=== PATIENT | female | born 1955 | race Caucasian/White ===

== ENCOUNTER 2019-10-29 11:46 | Outpatient (CLI) | payer OTHER, SELFPAY ==
--- NOTE | ~2019-10-29 | MM_ITS ---
EXAMINATION: MM screening [facility] w marcio HISTORY: Screening mammogram TECHNIQUE: Craniocaudal and mediolateral oblique 3-D tomosynthesis images were obtained and synthetic 2-D images were generated. CAD analysis was submitted and interpreted. COMPARISON: 08/27/2018, 08/01/2017, 03/15/2016 bilateral digital screening mammogram examinations BREAST PARENCHYMAL COMPOSITION: There are scattered areas of fibroglandular density. FINDINGS: There is stable mild fibroglandular asymmetry, unchanged since 03/15/2016. Occasional benig n calcifications. There is no evidence of suspicious mass, calcification, or architectural distortion to suggest malignancy in either breast. There has been no suspicious interval change. IMPRESSION: 1. No mammographic evidence of malignancy. 2. Recommend routine screening mammography in one year. BI-RADS Category 2: Benign finding(s). Reviewed, dictated and finalized at location A.
== END 2019-10-29 11:47 | disposition home or self-care (01) ==
LOC: ANHIMG 11:47
PROVIDERS: PCP Internal Medicine; Visit Provider Obstetrics & Gynecology
DX: Z12.31 Encounter for screening mammogram for malignant neoplasm of breast (principal)
CPT/HCPCS: 77063; 77067

== ENCOUNTER 2020-05-26 08:21 | Outpatient (CLI) | payer MEDICARE, SELFPAY ==
--- NOTE | ~2020-05-26 | CT_ITS ---
EXAMINATION: CT diagnostic chest wo con EXAM DATE: 05/26/2020 08:46 INDICATION: Cough. Previous positive test for COVID 19. TECHNIQUE: Spiral CT of the chest without contrast. Axial, coronal and sagittal images were reviewe d. Coronal maximum intensity pixel images of chest reviewed. The dose-length product (DLP) for this examination was 153.45 mGy-cm. The exposure was tailored according to patient size (auto mA exposur e control), and iterative reconstruction (ASIR) was used as additional dose reduction technique. The re is no prior study for comparison. FINDINGS: The lungs are clear. There are no pleural or pericardial effusions. Tracheobronchial t ree is patent. There is no mediastinal, hilar or axillary lymphadenopathy. There is no pneumothor ax. There is mild cardiomegaly. No evidence of coronary arterial calcification. Upper abdomen is unremarkable. The bones are unremarkable. IMPRESSION: Mild cardiomegaly. Otherwise unremarkable CT chest exam. Reviewed, dictated and finalized at location A. 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
== END 2020-05-26 08:22 | disposition home or self-care (01) ==
PROVIDERS: PCP Internal Medicine; Visit Provider Internal Medicine
DX: R05 Cough (principal); I51.7 Cardiomegaly
CPT/HCPCS: 71250

== ENCOUNTER 2020-11-24 09:29 | Outpatient (CLI) | payer MEDICARE, SELFPAY ==
--- NOTE | ~2020-11-24 | MM_ITS ---
EXAMINATION: MM screening [facility] w marcio HISTORY: Screening mammogram TECHNIQUE: Craniocaudal and mediolateral oblique 3-D tomosynthesis images were obtained and synthetic 2-D images were generated. CAD analysis was submitted and interpreted. COMPARISON: 10/29/2019, 08/23/2018, 08/01/2017 bilateral digital screening mammogram examinations BREAST PARENCHYMAL COMPOSITION: There are scattered areas of fibroglandular density. FINDINGS: Stable mild fibroglandular asymmetry. Occasional benign calcifications. There is no evidenc e of suspicious mass, calcification, or architectural distortion to suggest malignancy in either [address]. There has been no suspicious interval change. IMPRESSION: 1. No mammographic evidence of malignancy. 2. Recommend routine screening mammography in one year. BI-RADS Category 2: Benign finding(s). Reviewed, dictated and finalized at location A.
== END 2020-11-24 09:30 | disposition home or self-care (01) ==
LOC: ANHIMG 09:30
PROVIDERS: PCP Internal Medicine; Visit Provider Obstetrics & Gynecology
DX: Z12.31 Encounter for screening mammogram for malignant neoplasm of breast (principal)
CPT/HCPCS: 77063; 77067

== ENCOUNTER → 2021-01-02 08:00 | Outpatient (CLI) | payer MEDICARE, SELFPAY ==
[2021-01-03 07:19] LABS: SARS-CoV-2 RNA PCR Negative
== END ==
PROVIDERS: PCP Internal Medicine; Visit Provider Internal Medicine
DX: R68.89 Other general symptoms and signs (principal); Z20.822 Contact with and (suspected) exposure to COVID-19
CPT/HCPCS: C9803; U0003; U0005

== ENCOUNTER 2022-01-24 14:57 | Outpatient (CLI) | payer MEDICARE, SELFPAY ==
--- NOTE | ~2022-01-24 | DEXA_ITS ---
Bone Density Report Name: GREG FRANKLIN Age: 66 Sex: Female Ethnicity: White Date of : 1955 Indication: postmenopausal; screening for osteoporosis; parental hip fracture; height loss; hysterectomy; Referring Provider: ROSELYN RICHARDS Study: Bone densitometry was performed. Exam Date: January 24, 2022 Accession number: [id number] Bone Density: Region BMD T-score Z-score Classification AP Spine(L1-L4) 0.960 -0.8 1.1 Normal Femoral Neck (Left) 0.604 -2.2 -0.6 Osteopenia Total Hip (Left) 0.713 -1.9 -0.6 Osteopenia Femoral Neck (Right) 0.613 -2.1 -0.5 Osteopenia Total Hip (Right) 0.751 -1.6 -0.2 Osteopenia Total Hip Mean 0.732 -1.8 -0.4 Osteopenia World Health Organization criteria for BMD impression classify patients as: Normal (T-score at or above -1.0), Osteopenia (T-score between -1.0 and -2.5), or Osteoporosis (T-score at or below -2.5). 10-year Fracture Risk: FRAX not reported because: Treated for osteoporosis Clinical Information Provided by Patient: Parent has had a hip fracture Is being treated for osteoporosis Has used the following medications: Actonel (i.e. risedronate), Vitamin D Has the following medical conditions: Hysterectomy Patient maximum height was 60 Menopause Age: 50 No regular weight bearing exercise Does not regularly consume dairy products Onset of menses at age 13 Number of children 1 Impression: The patient has low bone mass, based on the Left Femoral Neck T-score. The patient has risk factors, including: parental hip fracture. Discussion: It is important to ask patients whether they are taking their medications and to encourage continued and appropriate compliance with their osteoporosis therapies to reduce fracture risk. It is also important to review their risk factors and encourage appropriate calcium and vitamin D intakes, exercise, fall prevention and other lifestyle measures. Follow-Up: Consider a repeat BMD and Vertebral Fracture Assessment (VFA) exam in 2 years or sooner if medically necessary, to reassess this patient's status. Reported by: GIBSON on 01/24/2022 3:29:00 PM. Reviewed, dictated and finalized at location Sánchez BEATTY
--- NOTE | ~2022-01-24 | MM_ITS ---
EXAMINATION: MM screening [facility] w marcio HISTORY: Screening TECHNIQUE: Craniocaudal and mediolateral oblique 3-D tomosynthesis images were obtained and synthetic 2-D images were generated. CAD analysis was submitted and interpreted. COMPARISON: Comparison to multiple prior studies sequentially, with oldest reviewed study dated 08/01. BREAST PARENCHYMAL COMPOSITION: There are scattered areas of fibroglandular density. FINDINGS: There is no evidence of suspicious mass, calcification, or architectural distortion to sugg est malignancy in either breast. There has been no suspicious interval change. IMPRESSION: 1. No mammographic evidence of malignancy. 2. Recommend routine screening mammography in one year. BI-RADS Category 1: Negative Reviewed, dictated and finalized at location A.
== END 2022-01-24 14:58 | disposition home or self-care (01) ==
PROVIDERS: PCP Internal Medicine; Visit Provider Obstetrics & Gynecology
DX: Z12.31 Encounter for screening mammogram for malignant neoplasm of breast (principal); M85.88 Other specified disorders of bone density and structure, other site; M85.852 Other specified disorders of bone density and structure, left thigh; M85.851 Other specified disorders of bone density and structure, right thigh
CPT/HCPCS: 77063; 77067; 77080

== ENCOUNTER 2024-04-03 16:35 | Emergency (ER) | payer MEDICARE, SELFPAY ==
[2024-04-03 16:52] VITALS: BP 186/91; PULSE 107; RESP 16; TEMP 36; O2SAT 99
--- NOTE | 2024-04-03 16:52 | ED.FEMALEGU ---
HPI - Female Genitourinary General Chief complaint: Urogenital-Female Stated complaint: uti symptoms Time Seen by Provider: 04/03/24 16:52 Source: patient, RN notes reviewed and old records reviewed Mode of arrival: ambulatory Limitations: no limitations History of Present Illness HPI Narrative: Patient presents with complaints of 2 days of urinary frequency and burning. She denies any fever, chills, sweats. She denies any injury or trauma. She denies any back pain, but does complain of some pain to the bladder area. She reports that what made her become concerned is that this evening she began with some vivian hematuria Related Data Home Medications ?Medication ?Instructions ?Recorded ?Confirmed ?Last Taken ?Type fexofenadine 60 mg tablet (Asya 60 mg PO Q12H 04/14/19 04/03/24 Unknown History Allergy) risedronate 150 mg tablet 150 mg PO MONTHLY 04/20/19 04/03/24 Unknown History ketotifen fumarate 0.025 % (0.035 1 drop ophthalmic (eye) BID 11/09/19 04/03/24 Unknown History %) eye drops (Zaditor) acetaminophen 325 mg tablet 325 mg PO Q6H 06/20/21 04/03/24 Unknown History (Tylenol) bimatoprost 0.01 % eye drops 1 drp EACH EYE DAILY 06/20/21 04/03/24 Unknown History (Lumigan) polyethylene glycol 400 0.25 % eye 2 drp ophthalmic (eye) DAILY 06/20/21 04/03/24 Unknown History gel drops (Blink Gel Tears) fluticasone propionate 50 1 spray intranasal DAILY 12/10/21 04/03/24 Unknown History mcg/actuation nasal spray,suspension Allergies Allergy/AdvReac Type Severity Reaction Status Date / Time clarithromycin Allergy Severe SWELLING/IT Verified 04/03/24 16:37 OSBALDO hydrocodone Allergy Severe DIZZYINESS Verified 04/03/24 16:37 morphine Allergy Severe BECAME Verified 04/03/24 16:37 VERY ILL Quinolones Allergy Severe N/V Verified 04/03/24 16:37 Sulfa (Sulfonamide Allergy Severe SWELLING/IT Verified 04/03/24 16:37 Antibiotics) OSBALDO celecoxib (From Celebrex) AdvReac Intermediate Diarrhea Verified 04/03/24 17:02 CORTICOSTEROIDS Allergy Severe SWELLING/IT Uncoded 04/03/24 16:37 OSBALDO MOXIFLOXACIN HCL Allergy Intermediate Hives Uncoded 04/03/24 16:37 Review of Systems Review of Systems: All systems reviewed & are unremarkable except as noted in HPI and below Constitutional: Constitutional: Reports no additional constitutional complaints ENT: Reports system reviewed and no additional complaints, except as documented Cardiovascular: Cardiovascular: Reports no additional cardiovascular complaints Respiratory: Respiratory: Reports no additional respiratory complaints Gastrointestinal: Gastrointestinal: Reports no additional gastrointestinal complaints Genitourinary: Genitourinary: Reports as per HPI, Reports hematuria, Reports dysuria and Reports urinary urgency [facility] Past Medical History Medical History (Updated 04/03/24 @ 17:01 by Tierra Pierson APRN) Osteopenia Hypertension IBS (irritable bowel syndrome) Headache Sinusitis Calcific tendonitis of right shoulder region Surgical History Surgical History History of foot surgery History of total hysterectomy History of D&C History of sinus surgery Family History Family History Mother Patient's mother is Father Patient's father is Other Family history of Alzheimer's disease Family history of arthritis Family history of malignant neoplasm of breast Family history of osteoporosis Social History Social History Smoking status: Former smoker Second hand tobacco smoke exposure: Yes Smoking end date: 04/06/00 Alcohol intake: never Substance use: never Comments At the time of my signature, I reviewed and agree with the nursing past medical, surgical, social, and family history. There is no relevant family history pertinent to the patient complaint. Exam Const: General: cooperative, no acute distress, alert and awake Orientation/consciousness: oriented to person, oriented to place and oriented to time HENMT: Head: normal to inspection Resp: Effort & Inspection: normal respiratory effort and able to speak in complete sentences Auscultation: clear to auscultation bilaterally, no crackles, no rales, no rhonchi and no wheezes Cardio: Palpation: normal PMI Rate: regular rate Rhythm: regular rhythm Heart sounds: S1 normal heart sound present and S2 normal heart sound present : General: Yes Bladder palpation abnormal tender and Yes no CVA tenderness Back/Spine/Pelvis: Back: no CVA tenderness Neuro: General: oriented to person, oriented to place and oriented to time Cranial nerves: Yes CN's II-XII intact bilaterally Psych: Appearance: grossly normal Thought process: Normal thought process present Insight: Good insight present (Psych) Judgement: Good judgement present (Psych) Course Course Level of Care: Express Care Visit Vital Signs Vital signs: Reviewed MDM - Female Genitourinary MDM Narrative Medical decision making narrative: UA consistent with UTI. Start Macrobid. Culture sent. Discharge instructions reviewed with patient, as well as provided in writing per nursing staff. The instructions also include specific and strict return/GO TO THE ER as well as f/u information. All questions have been answered, and the patient deny any further questions with discharge and discharge plan. Some parts of this dictation were generated by voice recognition software and may contain typographical and/or grammatical inaccuracies. Differential Diagnosis Differential diagnosis: Likely urinary tract infection and cystitis Medical Records Attestation: I reviewed the patient's medical records. Lab Data Attestation: I reviewed the patient's lab results. Discharge Plan Discharge Clinical Impression: Urinary tract infection Qualifiers: Urinary tract infection type: site unspecified Hematuria presence: with hematuria Qualified Code(s): N39.0 - Urinary tract infection, site not specified Patient Disposition: Home, Self-Care Condition: Stable Instructions: Antibiotic Form, Urinary Tract Infection in Women (ED) Additional Instructions: Take medications as prescribed. Follow with primary care provider. Emergency department for new or worsened symptoms Patient Language: Latvian Prescriptions: New nitrofurantoin monohyd/m-cryst [Macrobid] 100 mg capsule 100 mg PO Q12H 5 Days Qty: 10 0RF Rx Instructions: must administer with a meal/food phenazopyridine [Pyridium] 200 mg tablet 200 mg PO TID PRN (Reason: pain) Qty: 6 0RF No Action fexofenadine [Asya Allergy] 60 mg tablet 60 mg PO Q12H risedronate 150 mg tablet 150 mg PO MONTHLY Rx Instructions: administer at least 30 minutes before the first food or drink of the day other than water. ketotifen fumarate [Zaditor] 0.025 % (0.035 %) drops 1 drop EACH EYE BID Rx Instructions: administer at least 8 hours apart Blink Gel Tears 0.25 % drops,gel 2 drp ophthalmic (eye) DAILY acetaminophen [Tylenol] 325 mg tablet 325 mg PO Q6H Lumigan 0.01 % drops 1 drp EACH EYE DAILY fluticasone propionate 50 mcg/actuation spray,suspension 1 spray intranasal DAILY Rx Instructions: administer into each nostril ergocalciferol (vitamin D2) 1,250 mcg (50,000 unit) capsule 50,000 unit PO .COMPLEX Qty: 18 0RF Rx Instructions: 1 cap 3 times WEEKLY for 6 weeks- then DC lisinopril 10 mg tablet 20 mg PO DAILY Qty: 60 5RF Follow-up/Referrals: Cornell,Jerrod Rosenthal MD [Primary Care Provider] - 2 Weeks Time of Disposition: 17:02
[2024-04-03 16:56] LABS: EDUAAPPEAR Clear; EDUABILI Negative (Negative); EDUABLOOD 3+ (Negative); EDUACOLOR1 Red; EDUAGLUCOSE Negative (Negative); EDUAKETONE Negative (Negative); EDUALEUKO 1+ (Negative); EDUANITRATE Negative (Negative); EDUAPH 7.5; EDUAPROTEIN 2+ (Negative); EDUASPGRAVITY 1.015; EDUAUROBILI 0.2
== END 2024-04-03 17:06 | disposition home or self-care (01) ==
PROVIDERS: Emergency Provider Nurse Practitioner Family; PCP Family Medicine
DX: N39.0 Urinary tract infection, site not specified (principal); I10 Essential (primary) hypertension; Z87.891 Personal history of nicotine dependence
CPT/HCPCS: 81003; 87086; 99213; G0463